=== PATIENT | female | born 1945 | race Caucasian/White ===

== ENCOUNTER 2018-01-27 09:00 | Day surgery (SDC) | payer MEDICARE ==
[~2018-01-27] VITALS: Ht 165.1 cm; Wt 61.6 kg
[~2018-01-27 09:00] MED LIST: ACID CONTROLLER20 MG PO; ASPIRIN EC81 MG PO; CARVEDILOL25 MG PO; FAMOTIDINE20 MG PO; HYZAAR 100-12.1 EACH PO; HYZAAR 50-12.5 T1 EA PO; KEFLEX500 MG PO; SYNTHROID50 MCG PO
--- NOTE | 2018-01-27 11:07 | NUR ---
01/27/18 1107 Jossy Isaac 1057 PT ARRIVED IN PACU SLEEPY. ABD SOFT AND PASSING FLATUS. 1105 OXYGEN DECREASED TO 1L VIA NC WITH SATS 100%.
--- NOTE | 2018-01-28 09:05 | OR ---
[facility] [address], [place] [address] Signed DATE OF OPERATION: 01/27/2018 SURGEON: Omer Mancera MD COLONOSCOPY REPORT PREOPERATIVE DIAGNOSES: 1. Diarrhea. 2. Diverticulosis. POSTOPERATIVE DIAGNOSES: 1. Minimal sigmoid diverticulosis. 2. Minimal external hemorrhoids. PROCEDURE(S) PERFORMED: Colonoscopy with random cold biopsies. ESTIMATED BLOOD LOSS: None. INDICATIONS: Emerald is a 72-year-old female, who suffers with hemochromatosis. 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 Most recently, she has developed a couple of cysts in the body of the pancreas. She has been undergoing evaluation for this with her diarrhea; so far everything has been negative. She was asked to undergo a colonoscopy with random biopsies to rule out microscopic lymphocytic colitis. Emerald is quite familiar with colonoscopy. I did review it with her in the office. She understands risk including, but not limited to gas bloating, crampy abdominal pain, bleeding, perforation, requiring surgery, and missed diagnosis. She also understands the need for IV conscious sedation. She had expressed understanding and wished to proceed. PROCEDURE NOTE: Emerald was taken into our endoscopy suite and placed in the left lateral decubitus position. She was given IV sedation with 6 mg of Versed and 150 mcg of fentanyl. A digital rectal exam was performed and this was unremarkable except for some very small external hemorrhoid tissue. The adult colonoscope was introduced and advanced all around into the cecum under direct visualization of camera without difficulty. Her prep was good. The scope was slowly withdrawn. We saw no evidence of any inflammatory changes throughout the entire colon. She has her usual diverticula in the sigmoid Electronically Signed By: OMER MANCERA MD 01/28/18 0905 PATIENT NAME: EMERALD JOHNSON OPERATIVE REPORT DATE OF : 43 REPORT #: [id number] PHYSICIAN: OMER MACNERA MD PCP: MIRTA IVY MD REPORT IS CONFIDENTIAL AND NOT TO BE RELEASED WITHOUT AUTHORIZATION [facility] [address], [place] [address] Signed colon. We took multiple random cold biopsies throughout the entire colon and rectum. Upon retroflexion of the scope, there was no additional pathology noted above the anal canal. After this, the gas was suctioned out and the colonoscope removed. Emerald tolerated the procedure quite well. RECOMMENDATIONS: I will see Emerald back in my office in 7 to 14 days to review her results. Omer Mancera MD ALB/MODL /[id number] cc: MD Mirta Tavarez MD Robert C Quackenbush, MD Christy Dunst, MD Copies: OMER MANCERA MD, RUSSELL BARR MD QUACKENBUSH, ROBERT C MD DUNST, CHRISTY MD ~ Electronically Signed By: OMER MANCERA MD 01/28/18 0905 PATIENT NAME: EMERALD JOHNSON OPERATIVE REPORT DATE OF : 43 REPORT #: [id number] PHYSICIAN: OMER MANCERA MD PCP: MIRTA IVY MD REPORT IS CONFIDENTIAL AND NOT TO BE RELEASED WITHOUT AUTHORIZATION
== END 2018-01-27 12:00 | disposition home or self-care (01) ==
LOC: OPS 09:00 → DS 09:00 → OPS 10:30
PROVIDERS: Colon & Rectal Surgery
PROC: 0DBE8ZX Excision of Large Intestine, Via Natural or Artificial Opening Endoscopic, Diagnostic (ICD-10-PCS; principal; 2018-01-27 10:30)
DX: K52.9 Noninfective gastroenteritis and colitis, unspecified (principal); K57.30 Diverticulosis of large intestine without perforation or abscess without bleeding; K64.4 Residual hemorrhoidal skin tags; M19.90 Unspecified osteoarthritis, unspecified site; I12.9 Hypertensive chronic kidney disease with stage 1 through stage 4 chronic kidney disease, or unspecified chronic kidney disease; N18.3 Chronic kidney disease, stage 3 (moderate); E78.00 Pure hypercholesterolemia, unspecified; E03.9 Hypothyroidism, unspecified; Z98.890 Other specified postprocedural states; Z79.82 Long term (current) use of aspirin; Z79.899 Other long term (current) drug therapy
CPT/HCPCS: 99153; G0500; J2250; J3010; J7120

== ENCOUNTER 2023-08-08 20:03 | Emergency (ER) | payer MEDICARE ==
[~2023-08-08] VITALS: Ht 165.1 cm; Wt 62.0 kg
[~2023-08-08 20:03] MED LIST changes: +COZAAR100 MG PO; +HYDROCHLOROTH12.5 MG PO
[2023-08-08] MEDS ORDERED: IRBESARTAN150 MG PO (20:16)
[2023-08-08] MEDS ORDERED: FLUTICASONE-SA1 EAC5 IH (20:16)
[2023-08-08] MEDS ORDERED: ondansetron HCL 4 MG/2 ML VIAL IV ONE (21:00)
[2023-08-08] MEDS ORDERED: HYDROmorphone HCL 1 MG/ML SYR IV PRN (21:00)
[2023-08-08] MEDS ORDERED: DIPHTH,PERTUSS(ACELL),TET VAC 0.5 ML SYRINGE IM ONE (21:00)
[2023-08-08 21:41] LABS: HEMOGLOBIN 10.2 g/dL (12.0-18.0)
[2023-08-08 21:43] LABS: BASOPHILS 0.7 % (0-2); EOSINOPHILS 2.2 % (0-6); HEMATOCRIT 30.4 % (35.0-50.0); LYMPHOCYTES 18.5 % (24-44); MCH 30.5 (27-36); MCHC 33.7 g/dl (30-36); MCV 90.5 fl (81-99); MONOCYTES 6.3 % (0-12); NEUTROPHILS 72.3 % (39-80); PLATELET COUNT 208 K/uL (140-440); RBC 3.35 M/ul (4.3-5.7); RDW 12.5 (10.5-15.0)
[2023-08-08 21:52] LABS: ALBUMIN 3.1 g/dL (3.4-5.0); ALBUMIN/GLOBULIN RATIO 0.91 (1.1-2.4); ANION GAP 13.3 (7-21); BILIRUBIN, TOTAL 0.2 ng/dL (0.2-1.0); BUN/CREATININE RATIO 28.94 (6.0-28.6); CALCIUM 8.7 mg/dL (8.5-10.1); CREATININE, SERUM 1.52 mg/dL (0.55-1.02); POTASSIUM 4.3 mmol/L (3.5-5.1); PROTEIN, TOTAL 6.5 g/dL (6.4-8.2)
[2023-08-08] MEDS ORDERED: droPERidol 5 MG/2 ML VIAL IV PRN (23:45)
[2023-08-09 00:38] VITALS: BP 153/64
--- NOTE | 2023-08-09 19:58 | EKG ---
[facility] [address] [facility] [place], [place] [address] Signed Sinus bradycardia Otherwise normal ECG No previous ECGs available Confirmed by SHA MILLER MD ([id number]) on 08/09/2023 7:57:52 PM Electronically Signed By: SHA MILLER 08/09/231957 PATIENT NAME: HOMERO JOHNSON Electrocardiogram DATE OF : 43 PHYSICIAN: SHA MILLER REPORT #: [id number] REPORT IS CONFIDENTIAL AND NOT TO BE RELEASED WITHOUT AUTHORIZATION
== END 2023-08-09 00:38 | disposition short-term general hospital (02) ==
LOC: ED 20:03
PROVIDERS: Emergency Medicine
DX: S72.091A Other fracture of head and neck of right femur, initial encounter for closed fracture (principal); E03.9 Hypothyroidism, unspecified; I10 Essential (primary) hypertension; E83.119 Hemochromatosis, unspecified; W01.0XXA Fall on same level from slipping, tripping and stumbling without subsequent striking against object, initial encounter; Y92.009 Unspecified place in unspecified non-institutional (private) residence as the place of occurrence of the external cause; Z23 Encounter for immunization; Z87.891 Personal history of nicotine dependence; Z91.048 Other nonmedicinal substance allergy status; Z79.51 Long term (current) use of inhaled steroids; Z79.82 Long term (current) use of aspirin; Z79.890 Hormone replacement therapy; Z79.899 Other long term (current) drug therapy
CPT/HCPCS: 36415; 70450; 73502; 80053; 85025; 90471; 90715; 93005; 93010; 96374; 96375; 96376; 99285-25; J1170; J1790; J2405

== ENCOUNTER 2024-11-19 18:04 | Emergency (ER) | payer OTHER, MEDICARE ==
[~2024-11-19] VITALS: Ht 165.1 cm; Wt 66.2 kg
[~2024-11-19 18:04] MED LIST changes: +FLUTICASONE-SA1 EAC5 IH; +IRBESARTAN150 MG PO
[2024-11-19] MEDS ORDERED: DIAZEPAM5 MG PO (18:15)
[2024-11-19] MEDS ORDERED: fentaNYL citrate 100 MCG/2 ML VIAL IV ONE ×2 (18:30→19:15)
[2024-11-19 18:32] LABS: BASOPHILS 0.7 % (0.1-1.2); EOSINOPHILS 4.2 % (0.7-5.8); LYMPHOCYTES 27.5 % (19.3-51.7); MCH 30.2 PG (25.6-32.2); MCHC 31.9 g/dL (32.2-35.5); MCV 94.7 fL (79.4-94.8); MONOCYTES 10.2 % (4.7-12.5); NEUTROPHILS 57.2 % (34.0-71.1); RBC 3.18 M/uL (3.93-5.22)
[2024-11-19 18:44] LABS: INR 1.08 (0.80-1.30); PROTIME 13.3 Sec (11.2-14.2)
[2024-11-19 18:51] LABS: ALT (SGPT) 22.0 U/L (14-59); AST (SGOT) 17.0 U/L (15-37); GLOMERULAR FILTRATION RATE,EST 33.0 mL/min (>60); PROTEIN, TOTAL 6.6 g/dL (6.4-8.2); UREA NITROGEN 47.0 mg/dL (7-18)
[2024-11-19 19:13] LABS: ABO AB; ANTIBODY SCREEN NEGATIVE; RH NEGATIVE
[2024-11-19] MEDS ORDERED: OXYCODONE HCL 5 MG TAB PO ONE (20:30)
[2024-11-19] MEDS ORDERED: LORazepam 2 MG/ML VIAL IV ONE (21:30)
[2024-11-19] MEDS ORDERED: HYDROmorphone HCL 1 MG/ML SYR IV ONE (21:30)
[2024-11-19 21:48] VITALS: BP 178/68
--- NOTE | 2024-11-21 09:42 | EKG ---
[facility] [address] [facility] [place], [place] [address] Signed Sinus bradycardia Otherwise normal ECG When compared with ECG of 08-AUG-2023 21:55, No significant change was found Confirmed by Jean-Pierre Vaughn MD ([id number]) on 11/21/2024 9:42:33 AM Electronically Signed By: JEAN-PIERRE VAUGHN MD 11/21/24 0942 PATIENT NAME: HOMERO JOHNSON Na Electrocardiogram DATE OF : 43 PHYSICIAN: JEAN-PIERRE VAUGHN MD REPORT #: [id number] REPORT IS CONFIDENTIAL AND NOT TO BE RELEASED WITHOUT AUTHORIZATION
== END 2024-11-19 21:45 | disposition short-term general hospital (02) ==
LOC: ED 18:04
PROVIDERS: Emergency Medicine
DX: S72.032A Displaced midcervical fracture of left femur, initial encounter for closed fracture (principal); W01.0XXA Fall on same level from slipping, tripping and stumbling without subsequent striking against object, initial encounter; Z83.49 Family history of other endocrine, nutritional and metabolic diseases; Z86.79 Personal history of other diseases of the circulatory system; Z79.51 Long term (current) use of inhaled steroids; Z79.82 Long term (current) use of aspirin; Z79.899 Other long term (current) drug therapy; Z91.048 Other nonmedicinal substance allergy status; Z87.891 Personal history of nicotine dependence
CPT/HCPCS: 36415; 70450; 71045; 73502; 80053; 85025; 85610; 86850; 86900; 86901; 93005; 93010; 96374; 96375; 96376; 99285-25; A9270; J1171; J2060; J2405; J3010